=== PATIENT | male | born 1945 | race Caucasian/White ===

== ENCOUNTER 2023-03-07 09:31 | Emergency (ER) | payer BC ==
[~2023-03-07] VITALS: Ht 180.3 cm; Wt 77.1 kg
[2023-03-07 12:54] VITALS: BP 109/81; TEMP 98.2; O2SAT 100
== END 2023-03-07 12:55 | disposition home or self-care (01) ==
LOC: ER 09:34
DX: S00.531A Contusion of lip, initial encounter (principal); S00.03XA Contusion of scalp, initial encounter; G20 Parkinson's disease; W01.0XXA Fall on same level from slipping, tripping and stumbling without subsequent striking against object, initial encounter; Y93.89 Activity, other specified; Y92.89 Other specified places as the place of occurrence of the external cause; Y99.8 Other external cause status
CPT/HCPCS: 99284; 72125; 70450; 70486; A6403